=== PATIENT | female | born 1940 | race Caucasian/White ===

== ENCOUNTER 2017-07-26 08:50 | Emergency (ER) | payer OTHER ==
--- NOTE | 2017-07-26 09:11 | ED Physician Documentation ---
General Adult - HISTORIAN Historian: patient - HPI Stated Complaint: cough Chief Complaint: Cough/ Upper Respiratory Onset: other (on and off for over one month) Timing: still present Severity: moderate Further Comments: yes (reports cough on and off for one month. She states that she has no fever. She has had fatigue. She is "ready for this to be over" . She reports a history of asthma denies any changes in her inhalers. She did not see her PCP in this time due to holidays and being busy. She is feeling "tired") Last known Well Code/Unknown Code: Unknown - ROS CONST: recent illness. denies: fever EYES/ENT: denies: sore throat, nasal drainage CVS/RESP: shortness of breath, cough GI/: none MS/SKIN/LYMPH: none NEURO/PSYCH: denies: headache - PAST HX Past History: hypertension Surgeries/Procedures: none Immunizations: referred to PCP Allergies/Adverse Reactions: Allergies Allergy/AdvReac Type Severity Reaction Status Date / Time ibuprofen [From Motrin] Allergy Intermediate "stomach Verified 07/26/17 09:24 marques" tramadol Allergy Intermediate GI upset Verified 07/26/17 09:24 celecoxib [From Celebrex] AdvReac Intermediate fluid Verified 07/26/17 09:24 retention diclofenac sodium AdvReac Intermediate nausea Verified 07/26/17 09:24 [From Voltaren] 06/02 naproxen [From Naprosyn] AdvReac Intermediate "neddles Verified 07/26/17 09:24 in stomach" Sulfa (Sulfonamide AdvReac Intermediate Localized Verified 07/26/17 09:24 Antibiotics) Swelling adenosine Allergy Unknown Uncoded 07/26/17 09:24 Home Medications: Ambulatory Orders Medication Instructions Recorded Fluticasone/Salmeterol [Advair 1 each IH HS 07/20/13 100-50 Diskus] Omeprazole [Prilosec] 20 mg PO DAILY #1 07/20/13 Triamterene/Hydrochlorothiazid 1 each PO DAILY #1 av 07/20/13 [Triamterene-Hctz 37.5-25 Mg Cp] - SOCIAL HX Smoking History: cigarettes Alcohol Use: none Drug Use: none - FAMILY HX Family History: No - REVIEWED ASSESSMENTS Nursing Assessment Reviewed: Yes Vitals Reviewed: Yes ED Results Lab/Radiology - Radiology Radiology Impressions: HISTORY: 76-year-old female with cough. COMPARISON: None available. TECHNIQUE: 2 views of the chest were performed. FINDINGS: The lungs are hyperexpanded. No pneumothorax, consolidative infiltrates, pleural effusions, or pulmonary edema. The heart is not enlarged. 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 IMPRESSION: 1. Pulmonary hyperexpansion without evidence of acute intrathoracic process. 2. Thoracic spondylosis with some degree of ankylosis. Electronically signed on Jul 26, 2017 10:08:03 AM CHICK ROOM SUPERVISOR by: Leland Badillo General Adult Physical Exam - PHYSICAL EXAM GENERAL APPEARANCE: no distress EENT: eye inspection normal, PIYUSH NECK: normal inspection RESPIRATORY: no resp distress, chest non-tender, breath sounds normal CVS: reg rate & rhythm, heart sounds normal, equal pulses, no murmur ABDOMEN: soft SKIN: warm/dry, normal color EXTREMITIES: non-tender NEURO: oriented X3, CN's nml as tested, motor nml Discharge Clincal Impression: Viral illness Referrals: Paty Marie MD [Primary Care Provider] - 2 Days Additional Instructions: Medrol dose pack as directed Tessalon Pearls for cough Increase fluid intake Follow up with PCP for possible need of inhaler regimen changes Return for any changes in symptoms Condition: Stable Disposition: 01 HOME, SELF-CARE Decision to Admit: NO Date of Decison to Admit: 07/26/17 Decision Time: 10:03
[2017-07-26 10:32] VITALS: BP 197/102
--- NOTE | 2017-07-26 14:16 | Diagnostic Imaging Report ---
BHARATHI CELIS [facility] [address] [facility] [address] [place], [place]. [address] Report Submission Date: Jul 26, 2017 10:08:03 AM WIRELESS INTERNET INSTALLER Patient Study Name: ANUEL ANGLIN Date: Jul 26, 2017 9:51:16 AM WIRELESS INTERNET INSTALLER Modality Type: CR Gender: F Description: CHEST : 40 Institution: [facility] Physician: BHARATHI CELIS HISTORY: 76-year-old female with cough. COMPARISON: None available. TECHNIQUE: 2 views of the chest were performed. FINDINGS: The lungs are hyperexpanded. No pneumothorax, consolidative infiltrates, pleural effusions, or pulmonary edema. The heart is not enlarged. 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 IMPRESSION: 1. Pulmonary hyperexpansion without evidence of acute intrathoracic process. 2. Thoracic spondylosis with some degree of ankylosis. Electronically signed on Jul 26, 2017 10:08:03 AM WIRELESS INTERNET INSTALLER by: Leland LINN
== END 2017-07-26 10:20 | disposition home or self-care (01) ==
LOC: ED 08:50
DX: B34.9 Viral infection, unspecified (principal); R05 Cough
CPT/HCPCS: 71020; 87400; 99283